=== PATIENT | male | born 1950 | race Caucasian/White ===

== ENCOUNTER 2020-10-08 06:57 | Day surgery (SDC) | payer MEDICARE, OTHER ==
[~2020-10-08 06:57] MED LIST: Lactated Ringers 1,000 ML IV SCH; Lidocaine 1%/Sod Bicarbonate in NS 8.4% 1 ML Syringe IDERM PRN; Sodium Chloride 0.9% 10 ML Syringe FLUSH PRN
--- NOTE | 2020-10-08 07:18 | PCM.PREANE ---
Preanesthetic Assessment - Procedure Proposed Procedure: colonoscopy - Anesthesia/Transfusion/Family Hx Anesthesia History: Prior Anesthesia Without Reaction Family History of Anesthesia Reaction: No Transfusion History: No Prior Transfusion(s) - Review of Systems General: No Symptoms Pulmonary: No Symptoms Cardiovascular: Dyspnea on Exertion Gastrointestinal: No Symptoms Neurological: Numbness (little finger right hand and feet) Other: Reports: Diabetes (130 this am @0645) - Physical Assessment NPO Status Date: 10/07/20 NPO Status Time: 00:00 Height: 1.83 m Weight: 160 kg ASA Class: 3 Mental Status: Alert & Oriented x3 Airway Class: Mallampati = 2 Dentition: Reports: [place](s) Thyro-Mental Finger Breadths: 2 Mouth Opening Finger Breadths: 2 ROM/Head Extension: Full Lungs: Clear to Auscultation, Normal Respiratory Effort Cardiovascular: Regular Rate, Regular Rhythm - Lab Values: on chart - Allergies Allergies/Adverse Reactions: Allergies Allergy/AdvReac Type Severity Reaction Status Date / Time No Known Allergies Allergy Verified 10/07/20 12:43 - Blood Blood Available: No Product(s) Available: None - Anesthesia Plan Pre-Op Medication Ordered: None - Acknowledgements Anesthesia Type Planned: MAC Pt an Appropriate Candidate for the Planned Anesthesia: Yes Alternatives and Risks of Anesthesia Discussed w Pt/Guardian: Yes Pt/Guardian Understands and Agrees with Anesthesia Plan: Yes PreAnesthesia Questionnaire HEENT History: Reports: Impaired Vision, Other (See Below) Other HEENT History: wears glasses Cardiovascular History: Reports: High Cholesterol, Hypertension Respiratory History: Reports: Sleep Apnea, SOB Gastrointestinal History: Reports: Colon Polyp Genitourinary History: Reports: None GUN EXAMINER History: Reports: None Musculoskeletal History: Reports: None Neurological History: Reports: None Psychiatric History: Reports: None Endocrine/Metabolic History: Reports: Diabetes, Type II Hematologic History: Reports: None Immunologic History: Reports: None Oncologic (Cancer) History: Reports: None Dermatologic History: Reports: None - Infectious Disease History Infectious Disease History: Reports: None - Past Surgical History Head Surgeries/Procedures: Reports: None HEENT Surgical History: Reports: None Cardiovascular Surgical History: Reports: None Respiratory Surgical History: Reports: None GI Surgical History: Reports: Colonoscopy Female Surgical History: Reports: None Male Surgical History: Reports: None Endocrine Surgical History: Reports: None Neurological Surgical History: Reports: None Musculoskeletal Surgical History: Reports: None Oncologic Surgical History: Reports: None Dermatological Surgical History: Reports: None - SUBSTANCE USE Tobacco Use Status *Q: Never Tobacco User Tobacco Use Within Last Twelve Months: No Second Hand Smoke Exposure: No Days Per Week of Alcohol Use: 0 Number of Drinks Per Day: 0 Total Drinks Per Week: 0 Recreational Drug Use History: No - HOME MEDS Home Medications: Home Meds Aspirin [Liyah Chewable Aspirin] 81 mg PO DAILY 11/08/14 [History] Lisinopril 20 mg PO DAILY 11/08/14 [History] [place]-3/DHA/Epa/Fish Oil [Fish Oil 1,600 mg/5 ml Liquid] 1 dose PO DAILY 11/08/14 [History] Simvastatin 40 mg PO BEDTIME 11/08/14 [History] amLODIPine [Norvasc] 10 mg PO DAILY 11/08/14 [History] Glimepiride [Amaryl] 4 mg PO DAILY 10/07/20 [History] Lactobacillus Combo No.10 [Probiotic] 2 cap PO Q7D 10/07/20 [History] Sildenafil [Viagra] 100 mg PO ASDIRECTED PRN 10/07/20 [History] metFORMIN HCl [Metformin HCl] 1,000 mg PO BID 10/07/20 [History] - CURRENT (IN HOUSE) MEDS Current Meds: Current Medications Lactated Ringer's (Ringers, Lactated) 1,000 mls @ 125 mls/hr IV ASDIRECTED JOANNA Lidocaine/Sodium Bicarbonate (Buffered Lidocaine 1% In Ns 8.4%) 0.25 ml IDERM ONETIME PRN PRN Reason: Prior to IV Start Sodium Chloride (Saline Flush) 10 ml FLUSH ASDIRECTED PRN PRN Reason: Keep Vein Open
[2020-10-08] MEDS ORDERED: fentaNYL 100 MCG/2 ML SDV ONE (07:29)
[2020-10-08] MEDS ORDERED: Midazolam 1 MG/ML 2 ML SDV ONE (07:29)
[2020-10-08] MEDS ORDERED: Propofol 200 MG/20 ML SDV ONE ×3 (07:30→08:49)
[2020-10-08] MEDS ORDERED: Lidocaine 1% 4 ML ONE (07:32)
--- NOTE | 2020-10-08 09:18 | PCM48HPAN ---
Post Anesthesia Note - EVALUATION WITHIN 48HRS OF ANESTHETIC Vital Signs in Normal Range: Yes Patient Participated in Evaluation: Yes Respiratory Function Stable: Yes Airway Patent: Yes Cardiovascular Function Stable: Yes Hydration Status Stable: Yes Pain Control Satisfactory: Yes Nausea and Vomiting Control Satisfactory: Yes Mental Status Recovered: Yes Vital Signs: Last Vital Signs Temp 36.5 C 10/08/20 07:00 Pulse 73 10/08/20 07:00 Resp 16 10/08/20 07:00 BP 154/77 H 10/08/20 07:00 Pulse Ox 95 10/08/20 07:00 - COMMENTS/OBSERVATIONS Free Text/Narrative:: no anesthesia complications noted
--- NOTE | 2020-10-08 09:21 | PCM.OPNOTE ---
- General Post-Op/Procedure Note Date of Surgery/Procedure: 10/08/20 Operative Procedure(s): colonoscopy Findings: colon polyps and diverticulosis Pre Op Diagnosis: history of colon polyps Post-Op Diagnosis: same Anesthesia Technique: MAC Primary Surgeon: Lucia Jones Anesthesia Provider: Ab Goddard Pathology: 1. Hepatic flexure polyp x2 2. Transverse colon polyp x5 3. Descending colon polyp x8 4. Sigmoid colon polyp x3 Fluid Replacement, Intraop: 900 Output, Urine Amount: 0 EBL in mLs: 0 Complications: none apparent Condition: Good
--- NOTE | 2020-10-08 09:26 | PCM.PRNOTE ---
- Free Text/Narrative Note: Operative Report Date of Surgery/Procedure: October 08, 2020 Operative Procedure: Colonoscopy Pre Op Diagnosis: history of colon polyps Post-Op Diagnosis: same Surgeon: Lucia Jones MD Anesthesia Technique: MAC Anesthesia Provider: Ab Goddard CRNA IV Fluid Replacement, Intraop: 900cc Output, Urine Amount: 0cc EBL : 0cc Findings: colon polyps and diverticulosis Specimens: 1. Hepatic flexure polyp x2 2. Transverse colon polyp x5 3. Descending colon polyp x8 4. Sigmoid colon polyp x3 Indication: The patient is a 70 year-old gentleman who presented to the outpatient clinic requesting colorectal cancer surveillance. The patient has a history of colon polyps. We discussed the procedure of a screening colonoscopy including the polypectomy and biopsy. Risks of bleeding and perforation were discussed, the patient understood and wished to proceed. Written and consent was obtained. Description of the procedure: The patient was brought to the endoscopy suite and placed in the left lateral decubitus position. Appropriate monitors were applied. The patient was given MAC anesthesia. An anorectal examination was performed, revealing no external abnormality. The scope was placed into the rectum and advanced to cecum with minimal difficulty requiring external abdominal pressure. The patients cecum was entered, and the ileocecal valve and appendiceal orifice were identified and normal. At this point, the scope was withdrawn, paying careful attention to the mucosa. The patient had adequate bowel prep, allowing for visualization of polyps after suctioning and washing. Two hepatic flexure polyps were noted and measured 3-4mm and were semipedunculated, and were removed with a jumbo cold biopsy forceps. There were five polyps in the transverse colon measuring 2-5mm and removed with a jumbo cold biopsy forceps. Eight flat polyps were removed with a cold jumbo biopsy forceps in the descending colon measuring 3-4 mm. In the sigmoid colon a 6mm semipedunculated polyp was removed with a jumbo cold biopsy forceps. Two additional 3-4 mm flat polyps were removed with a jumbo cold biopsy forceps from the sigmoid colon. In the rectum, the scope was retroflexed and no abnormalities were noted, except for some hemorrhoidal tissue. The scope was placed back in the lumen and the excess air was aspirated. The patient tolerated the procedure well. Complications: none apparent Condition: Good, transported to PACU in stable condition Luciamagaly Jones MD General Surgery
[2020-10-08 10:11] VITALS: BP 131/73; PULSE 61
== END 2020-10-08 10:17 | disposition home or self-care (01) ==
LOC: JD.SDS 06:57
PROVIDERS: ATTEND Surgery
DX: Z12.11 Encounter for screening for malignant neoplasm of colon (principal); D12.3 Benign neoplasm of transverse colon; D12.4 Benign neoplasm of descending colon; K57.30 Diverticulosis of large intestine without perforation or abscess without bleeding; I10 Essential (primary) hypertension; E78.00 Pure hypercholesterolemia, unspecified; E11.9 Type 2 diabetes mellitus without complications; G47.33 Obstructive sleep apnea (adult) (pediatric); Z98.890 Other specified postprocedural states; Z79.899 Other long term (current) drug therapy; Z79.82 Long term (current) use of aspirin; Z79.84 Long term (current) use of oral hypoglycemic drugs
CPT/HCPCS: 00812; 82962; J2001; J2250; J2704; J3010; J7120

== ENCOUNTER 2023-09-18 15:15 | Emergency (ER) | payer MEDICARE, OTHER ==
[2023-09-18] MEDS ORDERED: Sodium Chloride 0.9% 10 ML Syringe FLUSH PRN (16:17)
[2023-09-18] MEDS: Nitroglycerin 0.4 MG Tab.SL SL PRN ×3 (16:24→16:37)
[2023-09-18 16:39] LABS: BASOPHILS PERCENT AUTO 0.6 % (0.0-1.0); EOSINOPHILS ABSOLUTE AUTO 0.2 K/mm3 (0.0-0.4); EOSINOPHILS PERCENT AUTO 3.2 % (0.0-6.0); HEMATOCRIT 44.7 % (42.0-52.0); HEMOGLOBIN 14.9 gm/dl (14.0-18.0); IMMATURE GRAN ABSOLUTE AUTO 0.01 K/mm3 (0.00-0.05); IMMATURE GRAN PERCENT AUTO 0.2 % (0.0-0.4); LYMPHOCYTES ABSOLUTE AUTO 1.5 K/mm3 (1.0-4.8); LYMPHOCYTES PERCENT AUTO 23.1 % (24.0-44.0); MEAN CORPUSCULAR HGB CONC 33.3 g/dl (32.0-36.0); MEAN CORPUSCULAR VOLUME 92.9 fl (83.0-99.0); MEAN PLATELET VOLUME 10.3 fl (9.4-12.4); MONOCYTES ABSOLUTE AUTO 0.6 K/mm3 (0.0-0.8); NEUTROPHILS PERCENT AUTO 63.9 % (41.0-71.0); PLATELET COUNT,PLT 176 K/mm3 (150-400); RED BLOOD CELL COUNT 4.81 M/mm3 (4.52-5.90); WHITE BLOOD CELL COUNT,WBC 6.31 K/mm3 (3.9-11.3)
[2023-09-18 17:04] LABS: ALBUMIN 3.8 g/dl (3.4-5.0); BUN/CREATININE RATIO 15.8 (14-18); CALCIUM 9.7 mg/dL (8.5-10.1); CREATININE 1.2 mg/dL (0.7-1.3); EST CRCL DRUG DOSING (CG) 61.97 mL/min
[2023-09-18 17:05] LABS: A/G RATIO 1.2 (1-2); BILIRUBIN TOTAL 0.3 mg/dL (0.2-1.0)
[2023-09-18] MEDS ORDERED: Sodium Chloride 0.9% 10 ML Syringe FLUSH ONE (17:39)
[2023-09-18] MEDS ORDERED: Iopamidol 755 Mg/ML 100 ML Bottle IVPUSH ONE (17:39)
[2023-09-18 19:20] VITALS: BP 132/87; PULSE 67
== END 2023-09-18 19:15 | disposition home or self-care (01) ==
LOC: JD.ED 15:15
DX: R07.89 Other chest pain (principal); I10 Essential (primary) hypertension; E78.00 Pure hypercholesterolemia, unspecified; E11.9 Type 2 diabetes mellitus without complications; Z79.82 Long term (current) use of aspirin; Z79.84 Long term (current) use of oral hypoglycemic drugs; Z79.899 Other long term (current) drug therapy
CPT/HCPCS: 36415; 71045; 71260; 80053; 84484; 85025; 85379; 93005; 99285; A9270; J3490; Q9967

== ENCOUNTER 2024-02-27 17:12 | Emergency (ER) | payer MEDICARE, OTHER ==
[2024-02-27 17:32] VITALS: BP 154/82; PULSE 82
[2024-02-27] MEDS: Bupivacaine 0.5% 10 ML SDV INJECT ONE (18:08)
[2024-02-27] MEDS: Lidocaine 1% 10 ML MDV INJECT ONE (18:08)
[2024-02-27] MEDS: Diphtheria,Pertussis(Acell),Tetanus Vaccine 0.5 ML Syringe IM ONE (18:09)
== END 2024-02-27 20:19 | disposition home or self-care (01) ==
LOC: JD.ED 17:12
DX: S61.319A Laceration without foreign body of unspecified finger with damage to nail, initial encounter (principal); Z79.82 Long term (current) use of aspirin; Z79.899 Other long term (current) drug therapy; Z23 Encounter for immunization; W26.0XXA Contact with knife, initial encounter
CPT/HCPCS: 12001; 90471; 90715; 99282; J0665; 99283; J3490

== ENCOUNTER 2024-07-25 10:31 | Day surgery (SDC) | payer MEDICARE ==
[~2024-07-25 10:31] MED LIST changes: -Lactated Ringers 1,000 ML IV SCH; -Lidocaine 1%/Sod Bicarbonate in NS 8.4% 1 ML Syringe IDERM PRN; +Sodium Chloride 0.9% 10 ML Syringe FLUSH SCH
[2024-07-25] MEDS: Lactated Ringers 1,000 ML IV SCH (10:50)
[2024-07-25] MEDS ORDERED: fentaNYL 100 MCG/2 ML SDV ONE (11:13)
[2024-07-25] MEDS ORDERED: Lidocaine 1% PF 2 ML SDV ONE ×2 (11:13)
[2024-07-25] MEDS ORDERED: Lidocaine 1% 4 ML ONE (11:13)
[2024-07-25] MEDS ORDERED: Midazolam 1 MG/ML 2 ML SDV ONE (11:13)
[2024-07-25] MEDS ORDERED: Propofol 200 MG/20 ML SDV ONE ×2 (11:13→11:42)
[2024-07-25 13:53] VITALS: BP 136/80; PULSE 74
== END 2024-07-25 13:16 | disposition home or self-care (01) ==
LOC: JD.SDS 10:31
PROVIDERS: ATTEND Surgery
DX: Z12.11 Encounter for screening for malignant neoplasm of colon (principal); D12.3 Benign neoplasm of transverse colon; D12.4 Benign neoplasm of descending colon; K64.9 Unspecified hemorrhoids; I10 Essential (primary) hypertension; E11.9 Type 2 diabetes mellitus without complications; E78.00 Pure hypercholesterolemia, unspecified; E66.9 Obesity, unspecified; Z79.82 Long term (current) use of aspirin; Z79.84 Long term (current) use of oral hypoglycemic drugs; Z79.899 Other long term (current) drug therapy; Z86.0100 Personal history of colon polyps, unspecified
CPT/HCPCS: 45380; 82947; J2250; J2704; J3010; J7120; 00811; 99100; J3490